=== PATIENT | male | born 2000 | race American Indian/Alaskan Native ===

== ENCOUNTER 2021-02-21 15:54 | Emergency (ER) | payer SELFPAY ==
[2021-02-21 16:06] VITALS: BP 103/63
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
== END 2021-02-21 16:50 | disposition home or self-care (01) ==
LOC: ED 15:54
DX: S46.912A Strain of unspecified muscle, fascia and tendon at shoulder and upper arm level, left arm, initial encounter (principal); V49.49XA Driver injured in collision with other motor vehicles in traffic accident, initial encounter; Y93.89 Activity, other specified; Y92.89 Other specified places as the place of occurrence of the external cause; Y99.8 Other external cause status
CPT/HCPCS: 99282